=== PATIENT | male | born 1935 | race Caucasian/White ===

== ENCOUNTER 2020-02-04 11:59 | Emergency (ER) | payer MEDICARE ==
--- NOTE | 2020-02-04 12:43 | EDM.PDOC ---
ED HPI GENERAL MEDICAL PROBLEM - General Chief Complaint: Neurological Problem Stated Complaint: SLURRED SPEECH Time Seen by Provider: 02/04/20 12:06 Source of Information: Reports: Patient, Family, RN Notes Reviewed History Limitations: Reports: No Limitations - History of Present Illness INITIAL COMMENTS - FREE TEXT/NARRATIVE: Wilberto presents today for complaints of having difficulty getting words out and speaking while eating breakfast this morning. He states he took a swim this morning per his usual routine, the was sitting down to eat breakfast, became weak while eating and could not speak or get words out for 5 minutes. His family brought him in right away. Their drive was 40 minutes long. time of onset 1100 today. He denies any other treatments or medication use. GCS 15 NIH 0 - Related Data Allergies Allergy/AdvReac Type Severity Reaction Status Date / Time No Known Allergies Allergy Verified 02/04/20 12:06 Home Meds: Home Meds NK [No Known Home Meds] 02/04/20 [History] Past Medical History - Past Surgical History GI Surgical History: Reports: Other (See Below) Other GI Surgeries/Procedures: kidney stones Male Surgical History: Reports: Prostate Biopsy Social & Family History - Tobacco Use Smoking Status *Q: Never Smoker ED ROS GENERAL - Review of Systems Review Of Systems: See Below Constitutional: Reports: No Symptoms HEENT: Reports: No Symptoms Respiratory: Reports: No Symptoms Cardiovascular: Reports: No Symptoms Endocrine: Reports: No Symptoms GI/Abdominal: Reports: No Symptoms : Reports: No Symptoms Musculoskeletal: Reports: No Symptoms Skin: Reports: No Symptoms Neurological: Reports: Trouble Speaking, Weakness, Change in Speech. Denies: Confusion, Dizziness, Headache, Numbness, Paresthesia, Pre-Existing Deficit, Seizure, Syncope, Tingling, Tremors, Difficulty Walking, Gait Disturbance Psychiatric: Denies: Agitation, Anxiety, Confusion, Mood Lability Hematologic/Lymphatic: Reports: No Symptoms Immunologic: Reports: No Symptoms ED EXAM, NEURO - Physical Exam Exam: See Below Exam Limited By: No Limitations General Appearance: Alert, WD/WN, Mild Distress Eye Exam: Bilateral Eye: EOMI, Normal Inspection, PERRL Ears: Normal External Exam, Normal Canal, Hearing Grossly Normal, Normal TMs Nose: Normal Inspection, Normal Mucosa, No Blood Throat/Mouth: Normal Inspection, Normal Lips, Normal Gums, Normal Oropharynx, Normal Voice, No Airway Compromise Head Exam: Atraumatic, Normocephalic Neck: Normal Inspection, Supple, Non-Tender, Full Range of Motion. No: Limited Range of Motion, Lymphadenopathy (R), Lymphadenopathy (L) Respiratory/Chest: No Respiratory Distress, Lungs Clear, Normal Breath Sounds, No Accessory Muscle Use, Chest Non-Tender Cardiovascular: Normal Peripheral Pulses, Regular Rate, Rhythm, No Edema, No Gallop, No Murmur, No Rub GI/Abdominal: Normal Bowel Sounds, Soft, Non-Tender, No Organomegaly, No Distention, No Abnormal Bruit, No Mass Neurological: Alert, Normal Dorsiflexion, CN II-XII Intact, Normal Plantar Flexion, Normal Reflexes, No Motor/Sensory Deficits, Oriented x 3, Withdraws to Pain, Other (GCS 15, anxious, NIH 0). No: Tremor DTR: 2+: Tricep (R), Tricep (L), Achilles (R), Achilles (L) Back Exam: Normal Inspection, Full Range of Motion. No: CVA Tenderness (R), CVA Tenderness (L) Extremities: Normal Inspection, Normal Range of Motion, Non-Tender, No Pedal Edema, Normal Capillary Refill Psychiatric: Normal Mood, Anxious Skin Exam: Warm, Dry, Intact, Normal Color, No Rash Comments: NIH score 0 EKG INTERPRETATION EKG Date: 02/04/20 Time: 12:02 Rhythm: NSR Rate (Beats/Min): 76 [place]: Normal P-Wave: Present QRS: Normal ST-T: Normal QT: Normal Comparison: NA - No Prior EKG EKG Interpretation Comments: Normal sinus without ectopy. Course - Vital Signs Last Recorded V/S: Last Vital Signs Temp 36.1 C 02/04/20 12:04 Pulse 77 02/04/20 13:02 Resp 8 L 02/04/20 13:02 BP 112/65 02/04/20 13:02 Pulse Ox 96 02/04/20 13:02 - Orders/Labs/Meds Orders: Active Orders 24 hr Category Date Time Status EKG Documentation Completion [RC] ASDIRECTED Care 02/04/20 12:16 Active Telemetry Monitoring [Cardiac Monitoring] [RC] .As Care 02/04/20 12:16 Active Directed EKG 12 Lead [EK] Routine Ther 02/04/20 12:16 Ordered Labs: Laboratory Tests 02/04/20 02/04/20 02/04/20 Range/Units 12:32 12:32 12:32 WBC 5.8 (4.5-11.0) K/uL RBC 4.68 (4.30-5.90) M/uL Hgb 13.6 (12.0-15.0) g/dL Hct 41.5 (40.0-54.0) % MCV 89 (80-98) fL MCH 29 (27-31) pg MCHC 33 (32-36) % Plt Count 221 (150-400) K/uL Neut % (Auto) 71 H (36-66) % Lymph % (Auto) 19 L (24-44) % [place] % (Auto) 7 H (2-6) % Eos % (Auto) 2 (2-4) % Baso % (Auto) 0 (0-1) % PT 10.8 (9.5-12.0) sec INR 1.00 (0.80-1.20) APTT 27.1 (27.0-36.0) sec Sodium 141 (140-148) mmol/L Potassium 4.2 (3.6-5.2) mmol/L Chloride 105 (100-108) mmol/L Carbon Dioxide 28 (21-32) mmol/L Anion Gap 8.5 (5.0-14.0) mmol/L BUN 17 (7-18) mg/dL Creatinine 1.1 (0.8-1.3) mg/dL Est Cr Clr Drug Dosing 53.89 mL/min Estimated GFR (MDRD) > 60 (>60) Glucose 148 H (74-106) mg/dL Calcium 8.7 (8.5-10.1) mg/dL Total Bilirubin 0.5 (0.2-1.0) mg/dL AST 19 (15-37) U/L ALT 16 (12-78) U/L Alkaline Phosphatase 72 (46-116) U/L Troponin I < 0.017 (0.000-0.056) ng/mL Total Protein 6.5 (6.4-8.2) g/dL Albumin 3.2 L (3.4-5.0) g/dL Globulin 3.3 (2.3-3.5) g/dL Albumin/Globulin Ratio 1.0 L (1.2-2.2) Patient lab work, head CT, exam and status reviewed with Dr. Rodriguez, he is in agreement with plan. Patient will be discharged to home with close follow up with primary. Start ASA 325MG PO daily Lab, vitals, head CT reviewed with patient and his , all his questions were answered. They are in agreement with plan. He is advised to avoid swimming until cleared per primary to avoid possible drowning. - Radiology Interpretation Free Text/Narrative:: Head CT without contrast shows no acute findings. - Re-Assessments/Exams Free Text/Narrative Re-Assessment/Exam: 02/04/20 12:59 Patient resting, denies complaints BP 130/68, heart rate 83. Departure - Departure Time of Disposition: 13:30 Disposition: Home, Self-Care 01 Condition: Good Clinical Impression: TIA (transient ischemic attack), Vasovagal episode - Discharge Information *PRESCRIPTION DRUG MONITORING PROGRAM REVIEWED*: Not Applicable *COPY OF PRESCRIPTION DRUG MONITORING REPORT IN PATIENT LAURENCE: Not Applicable Instructions: Near-Syncope, Transient Ischemic Attack Referrals: PCP,None [Primary Care Provider] - Forms: ED Department Discharge Additional Instructions: You have been evaluated and treated for a TIA versus a Near syncopal (vasovagal) episode. Symptoms started at 1100 and resolved by 1211 without intervention. Symptoms resolved, vital signs stable, EKG normal, head CT without contrast showed no acute findings. Stay hydrated by drinking plenty of water, continue your healthy diet. Avoid alcohol. Take aspirin 325mg by mouth daily with food. Follow up with primary provider in the next 3 to 7 days for a follow up. You may need further work-up which could include carotid ultrasound, cardiac echo, specialist referral or MRI per your primary provider. Notify 911 or go to the nearest emergency room for any reoccurrence of symptoms, loss of speech, limb weakness, sudden severe headache or any other concerning symptoms. It would be safest if you did not swim or drive by yourself until you have seen your primary provider. Sepsis Event Note (ED) - Evaluation Sepsis Screening Result: No Definite Risk - Focused Exam Vital Signs: Vital Signs Temp Pulse Resp BP Pulse Ox 02/04/20 13:02 77 8 L 112/65 96 02/04/20 12:14 77 17 173/85 H 99 02/04/20 12:04 36.1 C 99 11 L 173/85 H 99 - My Orders Last 24 Hours: My Active Orders 02/04/20 12:16 EKG Documentation Completion [RC] ASDIRECTED Telemetry Monitoring [Cardiac Monitoring] [RC] .As Directed EKG 12 Lead [EK] Routine - Assessment/Plan Last 24 Hours: My Active Orders 02/04/20 12:16 EKG Documentation Completion [RC] ASDIRECTED Telemetry Monitoring [Cardiac Monitoring] [RC] .As Directed EKG 12 Lead [EK] Routine Assessment:: Near-Syncope Transient Ischemic Attack Plan: Patient evaluated and treated for a TIA versus a Near syncopal (vasovagal) episode. Symptoms started at 1100 and resolved by 1211 without intervention. Symptoms resolved, vital signs stable, EKG normal, lab work normal, troponin negative, head CT without contrast showed no acute findings. Stay hydrated by drinking plenty of water, continue your healthy diet. Avoid alcohol. Take aspirin 325mg by mouth daily with food. Follow up with primary provider in the next 3 to 7 days for a follow up. Patient most likely need further work-up which could include carotid ultrasound, cardiac echo, specialist referral or MRI per primary provider as appropriate. Notify 911 or go to the nearest emergency room for any reoccurrence of symptoms, loss of speech, limb weakness, sudden severe headache or any other concerning symptoms. Patient advised not swim or drive by himself until you have seen his primary provider.
--- NOTE | 2020-02-04 13:02 | CT ---
Head wo Cont CLINICAL HISTORY: Aphasia COMPARISON: None TECHNIQUE: Transverse scans were obtained from the base of the skull through the vertex without IV contrast on a multislice, multidetector CT scanner. Auto dosage reduction and iterative reconstruction techniques employed. FINDINGS: There are tiny low-attenuation side adjacent to the of the caudate nucleus bilaterally. There is a punctate low-attenuation focus in the posterior left basal ganglia. There are dense carotid and vertebrobasilar artery calcifications.. There is no mass effect, hemorrhage, or extraaxial collection. The basal cisterns and sulci over the convexities are prominent. The ventricles are normal for age. There is scattered periventricular and subcortical lucency. IMPRESSION: Small lacunar-type infarcts of remote chronology Age-related atrophy Chronic ischemic microvascular changes
== END 2020-02-04 14:02 | disposition home or self-care (01) ==
LOC: JP.ED 11:59
DX: G45.9 Transient cerebral ischemic attack, unspecified (principal)
CPT/HCPCS: 36415; 70450; 70450-26; 80053; 84484; 85025; 85610; 85730; 93005; 93010; 99285; 99285-25

== ENCOUNTER 2020-04-04 18:37 | Emergency (ER) | payer MEDICARE ==
--- NOTE | 2020-04-04 19:36 | PCM.HP.2 ---
H&P History of Present Illness - General Date of Service: 04/04/20 Source of Information: Patient History Limitations: Reports: No Limitations - History of Present Illness Initial Comments - Free Text/Narative: Has increased frequency of urination passing urine every 45 mins. Unable to catheterize him in the office brought to the hospital for a bladder scan Location: Reports: Other (pelvis pain) - Related Data Allergies/Adverse Reactions: Allergies Allergy/AdvReac Type Severity Reaction Status Date / Time No Known Allergies Allergy Verified 02/04/20 12:06 Home Medications: Home Meds Tamsulosin HCl [Flomax] 0.4 mg PO DAILY 04/04/20 [History] Past Medical History Genitourinary History: Reports: Retention, Urinary, Other (See Below) Other Genitourinary History: kidney stones Neurological History: Reports: TIA - Past Surgical History Head Surgeries/Procedures: Reports: None Male Surgical History: Reports: Prostate Biopsy, Other (See Below) Other Male Surgeries/Procedures: green light surgery to prostate 2012 Neurological Surgical History: Reports: None Dermatological Surgical History: Reports: None Social & Family History - Tobacco Use Smoking Status *Q: Never Smoker - Caffeine Use Caffeine Use: Reports: None - Recreational Drug Use Recreational Drug Use: No H&P Review of Systems - Review of Systems: Review Of Systems: See Below General: Reports: Weakness HEENT: Reports: No Symptoms Pulmonary: Reports: No Symptoms Cardiovascular: Reports: No Symptoms Gastrointestinal: Reports: No Symptoms Genitourinary: Reports: Frequency, Urgency, Retention Musculoskeletal: Reports: No Symptoms Skin: Reports: No Symptoms Psychiatric: Reports: No Symptoms Neurological: Reports: No Symptoms Immunologic: Reports: No Symptoms Exam - Exam Exam: See Below - Vital Signs Vital Signs: Last Vital Signs Temp 97.1 F 04/04/20 19:06 Pulse 77 04/04/20 19:06 Resp 16 04/04/20 19:06 BP 156/80 H 04/04/20 19:06 Pulse Ox 99 04/04/20 19:06 Weight: 183 lb 13.848 oz - Exam General: Alert, Oriented, 4 Neck: Supple, Trachea Midline, 2 Lungs: Clear to Auscultation, Normal Respiratory Effort Cardiovascular: Regular Rate, Regular Rhythm GI/Abdominal Exam: Tender (Male) Exam: Normal Inspection Peripheral Pulses: 1+: Radial (L), Radial (R) Skin: Warm, Dry, Intact Neuro Extensive - Motor, Sensory, Reflexes: CN II-XII Intact Psychiatric: Alert, Normal Affect, Normal Mood Sepsis Event Note - Evaluation Sepsis Screening Result: No Definite Risk - Focused Exam Vital Signs: Vital Signs Temp Pulse Resp BP Pulse Ox 04/04/20 19:06 97.1 F 77 16 156/80 H 99 Problem List Initiated/Reviewed/Updated: Yes Assessment/Plan Comment:: Frequency of passing urine: Bladder scan showed 375cc of urine. Will not cath him again but to increase Flomax to 0.8 mg daily. Will recheck in the office after a urine is collected tomorrow. - Mortality Measure Prognosis:: Good
--- NOTE | 2020-04-04 19:37 | PCM.DCSUM1 ---
Discharge Summary - Hospital Course HPI Initial Comments: Has increased frequency of urination passing urine every 45 mins. Unable to catheterize him in the office brought to the hospital for a bladder scan Location: Reports: Other (pelvis pain) - Discharge Data Discharge Date: 04/04/20 Discharge Disposition: Home, Self-Care 01 Condition: Good - Referral to Home Health Primary Care Physician: Adi Rudolph Sr, MD - Discharge Plan Home Medications: Home Meds Tamsulosin HCl [Flomax] 0.4 mg PO DAILY 04/04/20 [History] - Discharge Summary/Plan Comment DC Time >30 min.: No Discharge Summary/Plan Comment: Frequency of passing urine: Bladder scan showed 375cc of urine. Will not cath him again but to increase Flomax to 0.8 mg daily. Will recheck in the office after a urine is collected tomorrow. - General Info Functional Status: Reports: Pain Controlled - Review of Systems General: Reports: No Symptoms HEENT: Reports: No Symptoms Pulmonary: Reports: No Symptoms Cardiovascular: Reports: No Symptoms Gastrointestinal: Reports: No Symptoms Genitourinary: Reports: Frequency Musculoskeletal: Reports: No Symptoms Skin: Reports: No Symptoms Neurological: Reports: No Symptoms Psychiatric: Reports: No Symptoms - Patient Data Vitals - Most Recent: Last Vital Signs Temp 97.1 F 04/04/20 19:06 Pulse 77 04/04/20 19:06 Resp 16 04/04/20 19:06 BP 156/80 H 04/04/20 19:06 Pulse Ox 99 04/04/20 19:06 Weight - Most Recent: 183 lb 13.848 oz - Exam General: Reports: Alert, Oriented HEENT: Reports: Pupils Equal, Pupils Reactive, EOMI, Mucous Membr. Moist/[place] Neck: Reports: Supple Lungs: Reports: Clear to Auscultation, Normal Respiratory Effort Cardiovascular: Reports: Regular Rate, Regular Rhythm GI/Abdominal Exam: Normal Bowel Sounds, Soft, Non-Tender, No Organomegaly, No Distention, No Abnormal Bruit, No Mass, Pelvis Stable (Male) Exam: No Hernia, Normal Inspection, Normal Prostate, Circumcised Extremities: Normal Inspection, Normal Range of Motion, Non-Tender, No Pedal Edema, Normal Capillary Refill Skin: Reports: Warm, Dry, Intact Neurological: Reports: No New Focal Deficit Psy/Mental Status: Reports: Alert, Normal Affect, Normal Mood
== END 2020-04-04 19:46 | disposition home or self-care (01) ==
LOC: JP.ED 18:37
DX: R35.0 Frequency of micturition (principal); R10.2 Pelvic and perineal pain
CPT/HCPCS: 99283

== ENCOUNTER 2021-06-03 17:14 | Emergency (ER) | payer MEDICARE ==
[2021-06-03] MEDS ORDERED: Sodium Chloride 0.9% 10 ML Syringe FLUSH PRN (17:45)
--- NOTE | 2021-06-03 17:46 | EDM.PDOC ---
ED HPI GENERAL MEDICAL PROBLEM - General Chief Complaint: Upper Extremity Injury/Pain Stated Complaint: RIGHT WRIST PAIN Time Seen by Provider: 06/03/21 17:45 Source of Information: Reports: Family, RN Notes Reviewed History Limitations: Reports: No Limitations - History of Present Illness INITIAL COMMENTS - FREE TEXT/NARRATIVE: Wilberto reports he slipped on the ice and fell developing pain to the right wrist [employer]. Deformity right wrist noted. He denies any other injuries, fever, chills nausea, vomiting or other concerns. Right Wrist Pain Score (Numeric/FACES): 7 - Related Data Allergies Allergy/AdvReac Type Severity Reaction Status Date / Time No Known Allergies Allergy Verified 06/03/21 17:38 Home Meds: Home Meds Ashaldairdha Root Extract 300 mg PO BID 04/02/21 [History] Past Medical History Genitourinary History: Reports: Renal Calculus, Retention, Urinary, Other (See Below) Other Genitourinary History: kidney stones Neurological History: Reports: TIA - Past Surgical History Head Surgeries/Procedures: Reports: None Male Surgical History: Reports: Kidney Stone Extraction, Lithotripsy ([facility]), Prostate Biopsy, Other (See Below) Other Male Surgeries/Procedures: green light surgery to prostate 2012 Social & Family History - Tobacco Use Tobacco Use Status *Q: Never Tobacco User - Caffeine Use Caffeine Use: Reports: None - Recreational Drug Use Recreational Drug Use: No Review of Systems - Review of Systems Review Of Systems: See Below Constitutional: Reports: No Symptoms Eyes: Reports: No Symptoms Ears: Reports: No Symptoms Nose: Reports: No Symptoms Mouth/Throat: Reports: No Symptoms Respiratory: Reports: No Symptoms Cardiovascular: Reports: No Symptoms GI/Abdominal: Reports: No Symptoms Genitourinary: Reports: No Symptoms Musculoskeletal: Reports: Arm Pain (right wrist pain with deformity. ) Skin: Reports: Bruising (right wrist). Denies: Cyanosis, Rash, Erythema, Wound, Change in Color, Change in Hair/Nails Neurological: Denies: Numbness, Tingling Psychiatric: Reports: No Symptoms ED EXAM, GENERAL - Physical Exam Exam: See Below Exam Limited By: No Limitations General Appearance: Alert, WD/WN, Mild Distress Head: Atraumatic, Normocephalic Neck: Normal Inspection, Supple, Non-Tender, Full Range of Motion. No: Lymphadenopathy (R), Lymphadenopathy (L) Respiratory/Chest: No Respiratory Distress, Lungs Clear, Normal Breath Sounds, No Accessory Muscle Use, Chest Non-Tender. No: Decreased Breath Sounds, Crackles, Rales, Rhonchi, Wheezing, Stridor Cardiovascular: Normal Peripheral Pulses, Regular Rate, Rhythm, No Edema, No Gallop, No Murmur, No Rub Peripheral Pulses: 4+: Radial (L), Radial (R) Back Exam: Normal Inspection, Full Range of Motion. No: CVA Tenderness (R), CVA Tenderness (L) Extremities: No Pedal Edema, Normal Capillary Refill, Arm Pain (right wrist pain with distal radius deformity, radial pulses intact, sensation intact. ) Neurological: Alert, Oriented, Normal Cognition, Normal Gait, Normal Reflexes, No Motor/Sensory Deficits Psychiatric: Normal Affect, Normal Mood Skin Exam: Warm, Dry, Intact, No Rash, Ecchymosis (right wrist) Lymphatic: No Adenopathy ED TRAUMA EXTREMITY PROCEDURES - Splinting Right Upper Extremity Pre-Procedure NV Status: Normal Post-Procedure NV Status: Normal Splint Material: Fiberglass, Sling Splint Design: Sugar Tong Applied & Form Fitted By: Provider Provider Post-Splint Application NV Check: NV Status Normal, Good Position Complications: No Progress/Comments: Patient tolerated well. Course - Vital Signs Last Recorded V/S: Last Vital Signs Temp 36.6 C 06/03/21 17:36 Pulse 89 06/03/21 17:36 Resp 18 06/03/21 17:36 BP 134/71 06/03/21 17:36 Pulse Ox 98 06/03/21 17:36 - Orders/Labs/Meds Orders: Active Orders 24 hr Category Date Time Status Saline Lock Insert [OM.PC] Routine Oth 06/03/21 17:45 Ordered Meds: Medications Discontinued Medications Generic Name Dose Route Start Last Admin Trade Name Freq PRN Reason Stop Dose Admin Sodium Chloride 10 ml 06/03/21 17:45 Sodium Chloride 0.9% 10 Ml Syringe FLUSH ASDIRECTED PRN Keep Vein Open - Radiology Interpretation Free Text/Narrative:: X-ray reviewed, noted mild displaced comminuted distal radius fracture, ulnar styloid fracture. Images pushed to [facility]. Images and plan reviewed with [facility]. - Re-Assessments/Exams Free Text/Narrative Re-Assessment/Exam: 06/03/21 17:53 Offered to start saline lock prior to x-ray, patient declined. 06/03/21 19:35 Images pushed to [facility] for review. [facility] paged. 06/03/21 20:07 Discussed case with [facility], he advises Sugar tong splint, sling and to follow up in ortho clinic [facility] at 0830 06/04/2021 for recheck. Departure - Departure Time of Disposition: 20:39 Disposition: Home, Self-Care 01 Condition: Good Clinical Impression: Displaced fracture of distal end of radius, Fracture of right ulnar styloid - Discharge Information Instructions: Cast or Splint Care, Adult, [id number] Referrals: PCP,None [Primary Care Provider] - Forms: ED Department Discharge Additional Instructions: You have been evaluated and treated for mildly displaced comminuted distal radius fracture and ulnar styloid fracture of right wrist. A splint has been placed. Keep the splint on and dry. Use sling to elevate the arm. Do not use your right arm/hand as this will cause pain. Ice to the wrist for 20 minutes, off for 10 then back on while awake. Tylenol 1000mg by mouth three times a day as needed for pain. For uncontrolled pain take hydrocodone 5/325mg PO every 8 hours for pain (Take prior to bed to help with rest). Follow up at [address] ([facility]) at 0820 tomorrow (06-04-2021) with [facility]. Return for any worsening issues or concerns. Sepsis Event Note (ED) - Evaluation Sepsis Screening Result: No Definite Risk - Focused Exam Vital Signs: Vital Signs Temp Pulse Resp BP Pulse Ox 06/03/21 17:36 36.6 C 89 18 134/71 98 - My Orders Last 24 Hours: My Active Orders 06/03/21 17:45 Saline Lock Insert [OM.PC] Routine - Assessment/Plan Last 24 Hours: My Active Orders 06/03/21 17:45 Saline Lock Insert [OM.PC] Routine Assessment:: Displaced fracture of distal end of radius, Fracture of right ulnar styloid Sugar Tong fiberglass splint placed XL sling provided Education on splint and sling use provided. Plan: Patient evaluated and treated for mildly displaced comminuted distal radius fracture and ulnar styloid fracture of right wrist. A splint has been placed. Keep the splint on and dry. Use sling to elevate the arm. Do not use right arm/hand as this will cause pain. Ice to the wrist for 20 minutes, off for 10 then back on while awake. Tylenol 1000mg by mouth three times a day as needed for pain. Follow up at [address] ([facility]) at 0820 tomorrow (06-04-2021) with [facility]. Return for any worsening issues or concerns.
--- NOTE | 2021-06-03 18:20 | CRLCR ---
For Patients: As a result of the Century Cures Act, medical imaging exams and procedure reports are released immediately into your electronic medical record. You may view this report before your referring provider. If you have questions, please contact your health care provider. Indication: Deformity right wrist. Technique: Three views of the right wrist. Comparison: None Findings: A comminuted fracture of the distal radius identified. No other styloid fractures identified. No other fractures are identified. Impression: Mild displaced comminuted distal radial fracture. Ulnar styloid fracture Dictated by Madelyn Yu MD @ 06/03/2021 6:19:55 PM (Electronically Signed)
== END 2021-06-03 21:21 | disposition home or self-care (01) ==
LOC: JP.ED 17:14
DX: S52.591A Other fractures of lower end of right radius, initial encounter for closed fracture (principal); S52.611A Displaced fracture of right ulna styloid process, initial encounter for closed fracture; Z86.73 Personal history of transient ischemic attack (TIA), and cerebral infarction without residual deficits; W00.0XXA Fall on same level due to ice and snow, initial encounter
CPT/HCPCS: 29125; 73110-RT; 99283-25